=== PATIENT | male | born 1990 | race Caucasian/White ===

== ENCOUNTER 2017-06-27 16:35 | Emergency (ER) | payer OTHER ==
[~2017-06-27] VITALS: Ht 182.9 cm; Wt 63.6 kg
[2017-06-27 16:38] VITALS: Ht 182.9 cm; Wt 63.6 kg
[2017-06-27] MEDS ORDERED: LIDOCAINE 1% (MDV) 20 ML INJ SC ONE (17:00)
[2017-06-27] MEDS ORDERED: CEPH500C PO (19:52)
[2017-06-27] MEDS ORDERED: NAPR-688 PO (19:52)
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
[2017-06-27 20:12] VITALS: BP 123/58; PULSE 69; RESP 20
== END 2017-06-27 20:12 | disposition home or self-care (01) ==
LOC: E/R 16:35
DX: S61.012A Laceration without foreign body of left thumb without damage to nail, initial encounter (principal); F17.210 Nicotine dependence, cigarettes, uncomplicated; W26.0XXA Contact with knife, initial encounter; Y92.9 Unspecified place or not applicable